=== PATIENT | female | born 1950 | race Caucasian/White ===

== ENCOUNTER → 2018-02-03 09:55 | Outpatient (CLI) | payer MEDICARE, OTHER, SELFPAY ==
--- NOTE | 2018-02-03 09:58 | BD_ITS ---
STUDY: DUAL ENERGY X-RAY ABSORPTIOMETRY / DXA REASON FOR EXAM: Female, 67 years old. The patient is postmenopausal. No loss of height. TECHNIQUE: Bone Mineral Density (BMD) measurements of lumbar spine and bilateral hips were obtained. COMPARISON: Comparison is made with prior study dated April 23, 2011. FINDINGS: Lumbar Spine (L1-L4): g/cm2 (1.188) / T-score (0.2) / Z-score (1.8) Findings are suggestive of normal bone density with a low fracture risk. Left Femur Total: g/cm2 (1.114) / T-score (0.8) / Z-score (2.1) Left Femoral Neck: g/cm2 (1.015) / T-score (-0.2) / Z-score (1.3) Right Femur Total: g/cm2 (1.049) / T-score (0.3) / Z-score (1.6) Right Femoral Neck: g/cm2 (0.945) / T-score (-0.7) / Z-score (0.8) The T-Scores on the most recent prior examination were: Lumbar Spine (L1-L4): There has been improvement of bone density since the previous examination. Left Femur Total: which represents a worsening of 0.9%. Right Femur Total: which represents a worsening of 3.9%. BD/Dexa Bone Density Study IMPRESSION: The patient is considered normal as outlined below according to World Sameer Organization (WHO) criteria with a low fracture risk. There has been worsening of bone density since the previous examination. Reference Information: The T-score is the number of standard deviations above or below the standard which is normal for young adults at their peak bone mineral density. The World Health Organization (WHO) interprets the T-scores as follows: Above -1 Normal bone density Between -1 and -2.5 Osteopenia Equal to / or below -2.5 Osteoporosis As a practical clinical guideline, osteopenia may be graded as follows: Mild -1 through -1.5 Moderate -1.6 through -2.0 Severe -2.1 through -2.4 The Z-score is the number of standard deviations above or below age-matched controls. A Z-score of less than -1.5 would be considered abnormal. References: 1. NIH Osteoporosis and Related Bone Diseases http://www.osteo.org 2. International Society for Clinical Densitometry http://www.iscd.org 3. National Osteoporosis Foundation http://www.nof.org Electronically Signed: Remberto Ferraro MD at 11:20 EDT Tel [phone], Service support ,
--- NOTE | 2018-02-03 09:58 | BI_ITS ---
MAMMOGRAPHY - BILATERAL SCREENING REASON FOR EXAM: Female, 67 years old. Routine annual screening examination. PERTINENT HISTORY: Mother with breast cancer. Grandmother with breast cancer. TECHNIQUE: Digital bilateral breast nelly (3D mammographic acquisition) in the CC and MLO projections. 2-D mediolateral oblique (MLO) and craniocaudad (CC) views of both breasts were obtained. CAD: Full Field Digital Mammography with Computer Added Detection was performed. COMPARISON: Comparison is made with prior study dated May 06, 2017 and June 25, 2015. FINDINGS: Breast Composition: There are scattered areas of fibroglandular density. There are no dominant masses or suspicious calcifications. Stable small bilateral axillary lymph nodes. No other significant abnormalities are identified. There has been no significant change since the prior study. BI/SCREENING MAMM (CAD), BILAT IMPRESSION: Stable bilateral screening mammogram. Yearly follow-up mammogram recommended. (A) ASSESSMENT CATEGORY: BIRADS Category 2: Benign. A letter regarding these results will be sent to the patient by the facility within 30 days. Approximately 10% of breast cancers are not detected by mammography. A normal mammogram should not delay biopsy of a clinically suspicious abnormality. [id number] Electronically Signed: Remberto Ferraro MD at 12:35 EDT Tel [phone], Service support ,
== END ==
PROVIDERS: Family Provider Family Medicine; PCP Family Medicine; Visit Provider Obstetrics & Gynecology Gynecology
DX: Z78.0 Asymptomatic menopausal state (principal); Z12.31 Encounter for screening mammogram for malignant neoplasm of breast; Z13.820 Encounter for screening for osteoporosis
CPT/HCPCS: 77063; 77067; 77080

== ENCOUNTER → 2018-08-10 11:55 | Outpatient (CLI) | payer MEDICARE, OTHER, SELFPAY ==
[2018-08-10 15:58] LABS: Absolute Lymphocyte Count 1.06 X10^3/ul (0.83-4.51); Absolute Neutrophil Count 2.1 X10^3/uL (2.0-7.7); Basophil# 0.04 X10^3/uL; Basophil% 1.1 % (0-1); Eosinophil# 0.15 X10^3/uL; Eosinophils% 4.1 % (0-5); Lymphocyte # 1.06 X10^3/ul (4.0); Mean Corp Hgb Conc 33.3 g/gl (32-36); Mean Corpuscular Hgb 30.2 pg (27.0-32.0); Mean Corpuscular Volume 90.5 fL (81-99); Mean Platelet Vol. 10.9 fl (6.2-12.0); Monocyte# 0.32 X10^3/uL; Monocyte% 8.8 % (0-10); Neutrophil # 2.08 X10^3/uL (2.7-7.7); Platelet Count 230 K/mm3 (150-450); RBC Distribution Width SD 46.1 fl (35.1-43.9); Red Blood Count 4.97 M/mm3 (4.2-5.4); White Blood Count 3.7 K/mm3 (4.4-11.0)
[2018-08-10 16:01] LABS: POSITIVE COUNT NO; POSITIVE DIFFERENTIAL NO; POSITIVE MORPHOLOGY NO
[2018-08-10 16:17] LABS: Vitamin D,25 Hydroxy 16.8 ng/mL (29.95-100.01)
[2018-08-10 16:20] LABS: ALB/GLOB Ratio 1.1 RATIO (0.9-2.4); AST(SGOT) 21 U/L (15-37); Alanine Aminotransfer ALT/SGPT 31 U/L (13-56); Albumin, Serum 3.8 g/dL (3.2-5.0); Alkaline Phosphatase 51 U/L (45-117); Anion Gap 9 (5-15); BUN 14 mg/dL (7-18); BUN/Creat Ratio 17.1 RATIO (10-20); Chloride 111 mmol/L (98-107); Cholesterol 187 mg/dL (200); Creatinine, Serum 0.82 mg/dL (0.55-1.02); EST Glomerular Filtration Rate 74 mL/min (>60); Est Glom Filt Rate - Afr Amer 90 mL/min (>60); Globulin 3.6 g/dL (2.2-4.2); Glucose 87 mg/dL (74-106); High Density Lipoprotein 62 mg/dL; Potassium 4.2 mmol/L (3.5-5.1); Protein, Total 7.4 g/dL (6.4-8.2); Sodium Level 141 mmol/L (136-145); Triglycerides 132 mg/dL; Very Low Density Lipoprotein 26 mg/dL (5-40)
[2018-08-10 16:22] LABS: Microalbumin,Random Urine 12.1 mg/L (NO RANGE EST.); Microalbumin:Creatinine Ratio 8.7 mg/g CRE (<30 mg/g CRE)
[2018-08-10 16:29] LABS: PTHIN 81.3 pg/mL (18.4-80.1)
== END ==
PROVIDERS: Family Provider Family Medicine; PCP Family Medicine; Visit Provider Family Medicine
DX: I10 Essential (primary) hypertension (principal); E21.3 Hyperparathyroidism, unspecified; E78.00 Pure hypercholesterolemia, unspecified
CPT/HCPCS: 36415; 80053; 80061; 82043; 82306; 82570; 83970; 84443; 85025

== ENCOUNTER → 2019-12-20 12:19 | Outpatient (CLI) | payer MEDICARE, OTHER, SELFPAY ==
[2019-12-20 15:53] LABS: Absolute Lymphocyte Count 1.54 X10^3/uL (0.83-4.51); Absolute Neutrophil Count 2.7 X10^3/uL (2.0-7.7); Basophil# 0.04 X10^3/uL; Basophil% 0.8 % (0-1); Eosinophil# 0.17 X10^3/uL; Eosinophils% 3.5 % (0-5); Hematocrit 46.9 % (37-47); Hemoglobin 15.1 g/dL (12.0-15.0); Lymphocyte # 1.54 X10^3/ul (4.0); Lymphocyte % 31.6 % (19-41); Mean Corp Hgb Conc 32.2 g/dL (32-36); Mean Corpuscular Hgb 29.5 pg (27.0-32.0); Mean Corpuscular Volume 91.6 fL (81-99); Mean Platelet Vol. 10.4 fl (6.2-12.0); Monocyte# 0.46 X10^3/uL; Monocyte% 9.4 % (0-10); NRBC Flagged by Analyzer 0 % (0-5); Neutrophil # 2.66 X10^3/uL (2.7-7.7); Neutrophil % 54.5 % (47-70); Platelet Count 242 K/mm3 (150-450); RBC Distribution Width CV 13.2 % (11.6-14.6); RBC Distribution Width SD 44.7 fl (35.1-43.9); Red Blood Count 5.12 M/mm3 (4.2-5.4); White Blood Count 4.9 K/mm3 (4.4-11.0)
[2019-12-20 16:01] LABS: Erythrocyte Sedimentation Rate 16 mm/hr (0-30)
[2019-12-20 16:52] LABS: ALB/GLOB Ratio 1.1 RATIO (0.9-2.4); AST(SGOT) 22 U/L (15-37); Alanine Aminotransfer ALT/SGPT 31 U/L (13-56); Albumin, Serum 3.9 g/dL (3.2-5.0); Alkaline Phosphatase 54 U/L (45-117); Anion Gap 4 (5-15); BUN 14 mg/dL (7-18); BUN/Creat Ratio 15.7 RATIO (10-20); Calcium,Total 9.2 mg/dL (8.5-10.1); Chloride 111 mmol/L (98-107); Cholesterol 213 mg/dL (200); Creatinine, Serum 0.89 mg/dL (0.55-1.02); EST Glomerular Filtration Rate 67 mL/min (>60); Est Glom Filt Rate - Afr Amer 81 mL/min (>60); Globulin 3.6 g/dL (2.2-4.2); Glucose 91 mg/dL (74-106); High Density Lipoprotein 66 mg/dL; Magnesium 2.1 mg/dL (1.6-2.6); Potassium 4.1 mmol/L (3.5-5.1); Protein, Total 7.5 g/dL (6.4-8.2); Sodium Level 141 mmol/L (136-145); Thyroid Stim Hormone (TSH) 2.96 uIU/mL (0.358-3.74); Triglycerides 128 mg/dL; Very Low Density Lipoprotein 26 mg/dL (5-40); Vitamin D,25 Hydroxy 28.5 ng/mL
[2019-12-21 08:44] LABS: PTHIN 102.7 pg/mL (18.4-80.1)
[2019-12-22 23:50] LABS: ANTINUCLEAR ANTIBODIES DIRECT Negative (Negative)
== END ==
PROVIDERS: PCP Family Medicine; Referring Provider Family Medicine; Visit Provider Family Medicine
DX: E78.00 Pure hypercholesterolemia, unspecified (principal); M25.519 Pain in unspecified shoulder; M79.10 Myalgia, unspecified site; E21.3 Hyperparathyroidism, unspecified; E55.9 Vitamin D deficiency, unspecified
CPT/HCPCS: 36415; 80053; 80061; 82306; 83735; 83970; 84443; 85025; 85652; 86038

== ENCOUNTER 2020-04-22 10:30 | Outpatient (RCR) | payer MEDICARE, OTHER, SELFPAY ==
--- NOTE | 2019-12-27 11:19 | HP.PTEVAL ---
Patient's Visit Information AUTUMN Carmona WORKMAN is a 69 year old F referred to Physical Therapy by Mahesh Jaramillo MD with a diagnosis of Bilateral shoulder pain- Malaise. Date of Evaluation: 12/27/19 Physical Therapist: Diann Esqueda DPT - Visit Plan Frequency: 2x /Week Duration: 4 Weeks Plan: Focus on scapular s/s- modaility of US as needed. HEP issued 12/26: postural correction in sitting for long periods of time, scapular retractions, pec corner stretch - Subjective Subjective: Patient reports that she has shoulder pain bilaterally right>left- she has had pain for about a month- insidious onset-she reports traveling pains when she was at her daughters she had achy pains in her legs and now they are in her shoulders. Pain is located in the whole shoulder and pain into the deltoid- the pain comes and goes. Reports the pain is achy. Agg: movement and laying on them, placing her coffee cup into the microwave. Worst: 5/10 Best: 0/10 Eases: returning to a resting position. Right hand dominate. No N/T in the hands. No Neck pain, blurred vision or dizziness. Has had a balance issue a long time but has no recent falls- but has had falls in the past with no serious injuries. No x-rays or MRI's of the shoulders. Is not very active- does not work outside of the home. Family is in [place] so she travels a lot. 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 sleep: disturbed- on her sides PMHx: HTN, endometriosis cancer Meds: Losartin, rosavastartin - Objective Posture: FH, RS, increased kyphosis- can correct but does not maintain. Gait: no deviation- good arm swing and trunk rotation. Palpation: tender along biciptal groove right >left. ROM: Cervical spine: WNL in all planes- no pain, Shoulder: Right: flexion: 90 degrees AROM 180 degrees AAROM, abd: 180 degrees, IR: to belt line, ER: 30 degrees all with pain. Left: WNL in all planes with pain IR, flexion, abduction and extension. Elbow/Wrist: bilateral WNL. Strength: Scap: poor, Shoulder: 4-/5 throughout with pain in all motions, Elbow: 4/5 no pain. Nurse Healthcare Manager: equal and fair bilaterally. Special Test: Impingment Neer: positive, Redmond Aime: positive, Empty Can: positive - Goals Goal 1:: Patient will be I with HEP and progression Goal Time Frame: 4-6 Weeks Goal 2:: Patient will maintain proper posture t/o tx session to demo increased scap s/s Goal Time Frame: 4-6 Weeks Goal 3:: Patient will report 0/10 pain for 1 week Goal Time Frame: 4-6 Weeks Goal 4:: Patinet will demo full AROM of the right shoulder Goal Time Frame: 4-6 Weeks - Rehabilitation Potential Physical Therapy Diagnosis: Patient presents with hypomobility- she has decreased scapular s/s and muscular endurance leading to impingment and increased pain with ADL's. Rehabilitation Potential: Good - Anticipated Interventions Patient/Client Instruction: Educate patient on: Benefits of Fitness Program Therapeutic Exercise to Include: Strength training, Endurance training, Body mechanics, Postural training, Passive ROM, Active ROM, Scapular Strength/Stabilization For the Purpose of:: To improve muscle performance and motor function TENS: Yes Cryotherapy (ice pack, ice massage): Yes Thermo therapy (hot pack): Yes Ultrasound (thermal/non thermal): Yes Thank you for the opportunity to evaluate your patient. For Medicare and Medicare HMO plans, please review the plan of care and approve it. It will need to be FAXED BACK to us at [phone] for Medicare purposes. For Medicare only, by signing this I certify the plan of care. Please let me know if there are questions or concerns regarding this plan of care. Physician Signature: Date:
--- NOTE | 2020-01-30 11:09 | HP.PTREVAL ---
Dr. Mahesh Jaramillo MD, It has been my pleasure to treat AUTUMN Carmona WORKMAN over the last 10 visits for Bilateral shoulder pain- Malaise. Please see the progress note below for an update on the physical therapy plan of care! Subjective: Pt reports she is feeling better overall, but notes she still has pain and limitations with IADL's Objective/Function: B shoulder pain is 2/10 at rest, 5/10 at worst. Pt reports she is more aware of posture at this time, but not all the time. R shoulder ROM: flex= 90, abd= 72, ER= 62. Pt is I with HEP Plan Plan: Cont with POC 2 times per week for 4 more weeks. Cont to focus on aggressive ROM and strengthening of B shoulders Goals Goal 1:: Patient will be I with HEP and progression Goal Time Frame: 4-6 Weeks Goal Progress: Goal Met Goal 2:: Patient will maintain proper posture t/o tx session to demo increased scap s/s Goal Time Frame: 4-6 Weeks Goal 3:: Patient will report 0/10 pain for 1 week Goal Time Frame: 4-6 Weeks Goal Progress: Progressing Goal 4:: Patinet will demo full AROM of the right shoulder Goal Time Frame: 4-6 Weeks Goal Progress: Progressing Anticipated Interventions Patient/Client Instruction: Educate patient on: Benefits of Fitness Program Therapeutic Exercise to Include: Strength training, Endurance training, Body mechanics, Postural training, Passive ROM, Active ROM, Scapular Strength/Stabilization For the Purpose of:: To improve muscle performance and motor function TENS: Yes Cryotherapy (ice pack, ice massage): Yes Thermo therapy (hot pack): Yes Ultrasound (thermal/non thermal): Yes Please do not hesitate to contact me at [phone] by phone or if you have questions or concerns regarding this new plan of care! Sincerely, Moses Rodrigues, PT, ATC
--- NOTE | 2020-02-26 11:12 | HP.PTREVAL_ITS ---
Dr. Mahesh Jaramillo MD, It has been my pleasure to treat AUTUMN Carmona WORKMAN over the last 18 visits for Bilateral shoulder pain- Malaise. Please see the progress note below for an update on the physical therapy plan of care! Subjective: Pt reports she is still sore and having difficulty with sleep at this time. Objective/Function: Pt reports her pain ranges from 2-5/10 and still causes her sleep difficulty. R shoulder ROM: flex= 110, abd= 90, ER= 70, IR WNL. R shoulder MMT: 3+/5 through available ROM. Pt reports she is still limited with all IADL's such as kitchen duties and donning/doffing clothes. Pt is improving but demonstrates the need for continued skilled PT to focus on strengthening, ROM, and pain relief Plan Plan: Cont to focus on aggressive ROM and strengthening of B shoulders Goals Goal 1:: Patient will be I with HEP and progression Goal Time Frame: 4-6 Weeks Goal Progress: Goal Met Goal 2:: Patient will maintain proper posture t/o tx session to demo increased scap s/s Goal Time Frame: 4-6 Weeks Goal Progress: Progressing Goal 3:: Patient will report 0/10 pain for 1 week Goal Time Frame: 4-6 Weeks Goal Progress: Progressing Goal 4:: Patinet will demo full AROM of the right shoulder Goal Time Frame: 4-6 Weeks Goal Progress: Progressing Anticipated Interventions Patient/Client Instruction: Educate patient on: Benefits of Fitness Program Therapeutic Exercise to Include: Strength training, Endurance training, Body mechanics, Postural training, Passive ROM, Active ROM, Scapular Strengt h/Stabilization For the Purpose of:: To improve muscle performance and motor function TENS: Yes Cryotherapy (ice pack, ice massage): Yes Thermo therapy (hot pack): Yes Ultrasound (thermal/non thermal): Yes Please do not hesitate to contact me at [phone] by phone or if you have questions or concerns regarding this new plan of care! Sincerely, Moses Rodrigues, PT, ATC
--- NOTE | 2020-03-26 11:06 | HP.PTREVAL ---
Dr. Mahesh Jaramillo MD, It has been my pleasure to treat AUTUMN Carmona WORKMAN over the last 26 visits for Bilateral shoulder pain- Malaise. Please see the progress note below for an update on the physical therapy plan of care! Subjective: Pt reports she does feel better, but knows she has to continue with ex's at this time. Pain only with certain movements. Objective/Function: R shoulder ROM: flex= 130, abd= 100, ER= 80, IR WNL. B shoulder pain ranges from 0-7/10. Pt is I with HEP. Pt still lacks functional strength and ROM for IADL's at this time. Plan Plan: Transition to machine use with emphasis on I with gym routine here at Goals Goal 1:: Patient will be I with HEP and progression Goal Time Frame: 4-6 Weeks Goal Progress: Goal Met Goal 2:: Patient will maintain proper posture t/o tx session to demo increased scap s/s Goal Time Frame: 4-6 Weeks Goal Progress: Goal Met Goal 3:: Patient will report 0/10 pain for 1 week Goal Time Frame: 4-6 Weeks Goal Progress: Progressing Goal 4:: Patinet will demo full AROM of the right shoulder Goal Time Frame: 4-6 Weeks Goal Progress: Progressing Anticipated Interventions Patient/Client Instruction: Educate patient on: Benefits of Fitness Program Therapeutic Exercise to Include: Strength training, Endurance training, Body mechanics, Postural training, Passive ROM, Active ROM, Scapular Strength/Stabilization For the Purpose of:: To improve muscle performance and motor function TENS: Yes Cryotherapy (ice pack, ice massage): Yes Thermo therapy (hot pack): Yes Ultrasound (thermal/non thermal): Yes Please do not hesitate to contact me at [phone] by phone or if you have questions or concerns regarding this new plan of care! Sincerely, Moses Rodrigues, PT, ATC
--- NOTE | 2020-04-22 11:02 | HP.PTDCSUM ---
It has been my pleasure to treat AUTUMN Carmona WORKMAN referred by Dr. Mahesh Jaramillo MD, with the diagnosis of Bilateral shoulder pain- Malaise for a total of 34 visit(s). Discharge Date: Please see the following information for a summary of their discharge status. Subjective: Mild R shoulder pain this date right shldr Pain Intensity (Out of 10): 2 left shldr Pain Intensity (Out of 10): 0 % Improvement: 80 Objective/Function: R shoulder pain 2/10, L shoulder pain 0/10. R shoulder ROM: flex= 145, abd= 100, ER= 65. L slhoulder ROM: flex= 160, abd= 160, ER= 55. R shoulder MMT: flex and abd= 4-/5, ER= 3+/5, IR 5/5. L shoulder MMT: all motions 4/5 throughout. Pt is I with HEP Goal 1:: Patient will be I with HEP and progression Goal Progress: Goal Met Goal 2:: Patient will maintain proper posture t/o tx session to demo increased scap s/s Goal Progress: Goal Met Goal 3:: Patient will report 0/10 pain for 1 week Goal Progress: Progressing Goal 4:: Patinet will demo full AROM of the right shoulder Goal Progress: Goal Met Plan: Discharge to HEP and gym routine If there are questions or concerns regarding this patient's physical therapy, please feel free to call me at [phone]. Thank you for the referral of this patient. Sincerely, Moses Rodrigues, PT, ATC
== END 2020-04-22 19:00 | disposition home or self-care (01) ==
LOC: PT 10:30
PROVIDERS: PCP Family Medicine; Referring Provider Family Medicine; Visit Provider Family Medicine
DX: M25.512 Pain in left shoulder (principal); M25.511 Pain in right shoulder; M79.10 Myalgia, unspecified site
CPT/HCPCS: 97110; 97161; 97164

== ENCOUNTER → 2020-04-23 11:44 | Outpatient (CLI) | payer MEDICARE, OTHER, SELFPAY ==
[2020-04-23 15:21] LABS: Absolute Lymphocyte Count 1.32 X10^3/uL (0.83-4.51); Absolute Neutrophil Count 3.3 X10^3/uL (2.0-7.7); Basophil# 0.04 X10^3/uL; Basophil% 0.7 % (0-1); Eosinophil# 0.18 X10^3/uL; Eosinophils% 3.4 % (0-5); Hematocrit 45.2 % (37-47); Hemoglobin 14.7 g/dL (12.0-15.0); Lymphocyte # 1.32 X10^3/ul (4.0); Lymphocyte % 24.6 % (19-41); Mean Corp Hgb Conc 32.5 g/dL (32-36); Mean Corpuscular Volume 92.2 fL (81-99); Mean Platelet Vol. 11.3 fl (6.2-12.0); Monocyte% 9.3 % (0-10); NRBC Flagged by Analyzer 0 % (0-5); Neutrophil # 3.31 X10^3/uL (2.7-7.7); Neutrophil % 61.8 % (47-70); Platelet Count 215 K/mm3 (150-450); RBC Distribution Width CV 13.7 % (11.6-14.6); RBC Distribution Width SD 46.3 fl (35.1-43.9); White Blood Count 5.4 K/mm3 (4.4-11.0)
[2020-04-23 15:32] LABS: Vitamin D,25 Hydroxy 42.5 ng/mL
[2020-04-23 15:42] LABS: PTHIN 93.1 pg/mL (18.4-80.1)
[2020-04-23 15:49] LABS: CRP < 2.90 mg/L (0.0-3.0); Thyroid Stim Hormone (TSH) 2.17 uIU/mL (0.358-3.74)
== END ==
PROVIDERS: PCP Family Medicine; Referring Provider Family Medicine; Visit Provider Family Medicine
DX: E34.9 Endocrine disorder, unspecified (principal); M79.10 Myalgia, unspecified site
CPT/HCPCS: 36415; 82306; 83970; 84443; 85025; 86140

== ENCOUNTER → 2020-05-24 | Outpatient (CLI) | payer MEDICARE, OTHER, SELFPAY | END | disposition home or self-care (01) | LOC: LABSPEC 15:02 | PROVIDERS: PCP Family Medicine; Referring Provider Family Medicine; Visit Provider Family Medicine | DX: Z03.818 Encounter for observation for suspected exposure to other biological agents ruled out (principal) | CPT/HCPCS: 87633; 87635; U0003 ==

== ENCOUNTER → 2020-08-20 15:18 | Outpatient (CLI) | payer MEDICARE, OTHER, SELFPAY ==
[2020-06-25 12:39] VITALS: BMI 40.2
--- NOTE | 2020-08-20 15:20 | BI_ITS ---
MAMMOGRAPHY - BILATERAL SCREENING REASON FOR EXAM: Female, 70 years old. Routine annual screening examination. PERTINENT HISTORY: Mother with breast cancer. Grandmother with breast cancer. TECHNIQUE: Digital bilateral breast clarence (3D mammographic acquisition) in the CC and MLO projections. 2-D mediolateral oblique (MLO) and craniocaudad (CC) views of both breasts were obtained. CAD: Full Field Digital Mammography with Computer Added Detection was performed. COMPARISON: Comparison is made with prior study dated 02/03/2018 and 11/14/2016. FINDINGS: Breast Composition: There are scattered areas of fibroglandular density. There are no dominant masses or suspicious calcifications. Stable small benign appearing bilateral axillary lymph nodes. No other significant abnormalities are identified. There has been no significant change since the prior study. BI/SCREEN MAMM (CAD) W/CLARENCE BILAT IMPRESSION: Stable bilateral screening mammogram. Yearly follow-up mammogram recommended. (A) ASSESSMENT CATEGORY: BIRADS Category 2: Benign. A letter regarding these results will be sent to the patient by the facility within 30 days. Approximately 10% of breast cancers are not detected by mammography. A normal mammogram should not delay biopsy of a clinically suspicious abnormality. [id number] Electronically Signed: Remberto Ferraro, at 8:21 EST , Service support ,
== END ==
PROVIDERS: PCP Family Medicine; Referring Provider Family Medicine; Visit Provider Family Medicine
DX: Z12.31 Encounter for screening mammogram for malignant neoplasm of breast (principal)
CPT/HCPCS: 77063; 77067

== ENCOUNTER → 2020-08-29 11:17 | Outpatient (CLI) | payer MEDICARE, OTHER, SELFPAY ==
[2020-06-25 12:39] VITALS: BMI 40.2
[2020-08-29 12:37] LABS: Absolute Lymphocyte Count 0.98 X10^3/uL (0.83-4.51); Absolute Neutrophil Count 2.6 X10^3/uL (2.0-7.7); Basophil# 0.04 X10^3/uL; Basophil% 0.9 % (0-1); Eosinophil# 0.13 X10^3/uL; Hematocrit 45.4 % (37-47); Hemoglobin 14.4 g/dL (12.0-15.0); Lymphocyte # 0.98 X10^3/ul (4.0); Lymphocyte % 22.6 % (19-41); Mean Corp Hgb Conc 31.7 g/dL (32-36); Mean Corpuscular Hgb 29.6 pg (27.0-32.0); Mean Corpuscular Volume 93.2 fL (81-99); Mean Platelet Vol. 10.1 fl (6.2-12.0); Monocyte% 13.9 % (0-10); NRBC Flagged by Analyzer 0 % (0-5); Neutrophil # 2.56 X10^3/uL (2.7-7.7); Neutrophil % 59.1 % (47-70); Platelet Count 259 K/mm3 (150-450); RBC Distribution Width CV 14.5 % (11.6-14.6); RBC Distribution Width SD 49.8 fl (35.1-43.9); Red Blood Count 4.87 M/mm3 (4.2-5.4); White Blood Count 4.3 K/mm3 (4.4-11.0)
[2020-08-29 13:23] LABS: ALB/GLOB Ratio 0.9 RATIO (0.9-2.4); AST(SGOT) 15 U/L (15-37); Alanine Aminotransfer ALT/SGPT 23 U/L (13-56); Albumin, Serum 3.4 g/dL (3.2-5.0); Alkaline Phosphatase 56 U/L (45-117); Anion Gap 5 (5-15); BUN 10 mg/dL (7-18); Calcium,Total 9.4 mg/dL (8.5-10.1); Chloride 113 mmol/L (98-107); Creatinine, Serum 0.83 mg/dL (0.55-1.02); EST Glomerular Filtration Rate 72 mL/min (>60); Est Glom Filt Rate - Afr Amer 88 mL/min (>60); Globulin 3.6 g/dL (2.2-4.2); Glucose 87 mg/dL (74-106); Magnesium 2.2 mg/dL (1.6-2.6); Potassium 3.7 mmol/L (3.5-5.1); Sodium Level 143 mmol/L (136-145); Thyroid Stim Hormone (TSH) 2.36 uIU/mL (0.358-3.74)
== END ==
PROVIDERS: PCP Family Medicine; Referring Provider Family Medicine; Visit Provider Family Medicine
DX: R53.83 Other fatigue (principal); E21.3 Hyperparathyroidism, unspecified
CPT/HCPCS: 36415; 80053; 82306; 83735; 84443; 85025

== ENCOUNTER → 2020-11-26 11:33 | Outpatient (CLI) | payer MEDICARE, OTHER, SELFPAY ==
[2020-06-25 12:39] VITALS: BMI 40.2
[2020-11-26 15:17] LABS: Absolute Lymphocyte Count 1.25 X10^3/uL (0.83-4.51); Absolute Neutrophil Count 2.6 X10^3/uL (2.0-7.7); Basophil# 0.04 X10^3/uL; Basophil% 0.9 % (0-1); Eosinophil# 0.25 X10^3/uL; Eosinophils% 5.5 % (0-5); Hematocrit 47.2 % (37-47); Hemoglobin 15.1 g/dL (12.0-15.0); Lymphocyte # 1.25 X10^3/ul (4.0); Lymphocyte % 27.4 % (19-41); Mean Corpuscular Hgb 29.3 pg (27.0-32.0); Mean Corpuscular Volume 91.5 fL (81-99); Mean Platelet Vol. 10.6 fl (6.2-12.0); Monocyte# 0.46 X10^3/uL; Monocyte% 10.1 % (0-10); NRBC Flagged by Analyzer 0 % (0-5); Neutrophil # 2.55 X10^3/uL (2.7-7.7); Neutrophil % 55.9 % (47-70); Platelet Count 254 K/mm3 (150-450); RBC Distribution Width CV 12.8 % (11.6-14.6); RBC Distribution Width SD 42.8 fl (35.1-43.9); Red Blood Count 5.16 M/mm3 (4.2-5.4); White Blood Count 4.6 K/mm3 (4.4-11.0)
[2020-11-26 15:30] LABS: ALB/GLOB Ratio 1.1 RATIO (0.9-2.4); AST(SGOT) 21 U/L (15-37); Alanine Aminotransfer ALT/SGPT 33 U/L (13-56); Albumin, Serum 3.7 g/dL (3.2-5.0); Alkaline Phosphatase 55 U/L (45-117); Anion Gap 6 (5-15); BUN 12 mg/dL (7-18); BUN/Creat Ratio 14.9 RATIO (10-20); Calcium,Total 9.2 mg/dL (8.5-10.1); Chloride 113 mmol/L (98-107); Creatinine, Serum 0.81 mg/dL (0.55-1.02); EST Glomerular Filtration Rate 75 mL/min (>60); Est Glom Filt Rate - Afr Amer 91 mL/min (>60); Globulin 3.5 g/dL (2.2-4.2); Glucose 86 mg/dL (74-106); Protein, Total 7.2 g/dL (6.4-8.2); Sodium Level 142 mmol/L (136-145)
[2020-11-26 15:32] LABS: Vitamin D,25 Hydroxy 48.8 ng/mL
[2020-11-27 08:35] LABS: PTHIN 90.8 pg/mL (18.4-80.1)
== END ==
PROVIDERS: PCP Family Medicine; Referring Provider Family Medicine; Visit Provider Family Medicine
DX: E21.3 Hyperparathyroidism, unspecified (principal); M25.519 Pain in unspecified shoulder
CPT/HCPCS: 36415; 80053; 82306; 83970; 85025

== ENCOUNTER → 2020-12-31 09:54 | Outpatient (CLI) | payer MEDICARE, OTHER, SELFPAY ==
[2020-06-25 12:39] VITALS: BMI 40.2
[2020-12-31 13:07] LABS: PTHIN 144.4 pg/mL (18.4-80.1)
[2020-12-31 13:08] LABS: Vitamin D,25 Hydroxy 59.2 ng/mL
== END ==
PROVIDERS: PCP Family Medicine; Referring Provider Family Medicine; Visit Provider Family Medicine
DX: E21.3 Hyperparathyroidism, unspecified (principal)
CPT/HCPCS: 36415; 82306; 83970

== ENCOUNTER → 2021-01-02 14:53 | Outpatient (CLI) | payer MEDICARE, OTHER, SELFPAY ==
[2020-06-25 12:39] VITALS: BMI 40.2
--- NOTE | 2021-01-02 14:56 | US_ITS ---
STUDY: THYROID ULTRASOUND REASON FOR EXAM: Female, 70 years old. persistent elevated PTH w/ normal renal function and vitamin D TECHNIQUE: Ultrasound evaluation of the thyroid was performed with real-time and static barber-scale imaging. COMPARISON: None. FINDINGS: RIGHT LOBE: The right lobe of the thyroid gland measures 3.6 x 1.6 x 1.5 cm. There is a homogeneous echotexture. There are no demonstrated solid, cystic or complex lesions. Multiple small (less than 5 mm) colloid cyst. LEFT LOBE: The left lobe of the thyroid gland measures 4.2 x 1.1 x 1.2 cm. There is a homogeneous echotexture. Multiple small (less than 5 mm) colloid cyst. ISTHMUS: The isthmus measures 3 mm thick. . The regional lymph nodes are normal. US/Thyroid IMPRESSION: Normal ultrasound examination of the thyroid. Multiple tiny colloid cyst. Electronically Signed: Ezequiel Constantino MD at 9:50 EDT Tel , Service support ,
== END ==
PROVIDERS: PCP Family Medicine; Referring Provider Family Medicine; Visit Provider Family Medicine
DX: E21.3 Hyperparathyroidism, unspecified (principal)
CPT/HCPCS: 76536

== ENCOUNTER → 2021-05-07 09:42 | Outpatient (CLI) | payer MEDICARE, OTHER, SELFPAY ==
[2020-06-25 12:39] VITALS: BMI 40.2
[2021-05-07 12:41] LABS: Vitamin D,25 Hydroxy 48.2 ng/mL
[2021-05-07 12:48] LABS: PTHIN 80.8 pg/mL (18.4-80.1)
[2021-05-07 12:52] LABS: ALB/GLOB Ratio 1.1 RATIO (0.9-2.4); AST(SGOT) 23 U/L (15-37); Alanine Aminotransfer ALT/SGPT 33 U/L (13-56); Albumin, Serum 3.7 g/dL (3.2-5.0); Alkaline Phosphatase 54 U/L (45-117); Anion Gap 7 (5-15); BUN 12 mg/dL (7-18); BUN/Creat Ratio 14.5 RATIO (10-20); CRP < 2.90 mg/L (0.0-3.0); Calcium,Total 9.2 mg/dL (8.5-10.1); Chloride 110 mmol/L (98-107); Cholesterol 211 mg/dL (200); Creatinine, Serum 0.83 mg/dL (0.55-1.02); EST Glomerular Filtration Rate 73 mL/min (>60); Est Glom Filt Rate - Afr Amer 88 mL/min (>60); Globulin 3.4 g/dL (2.2-4.2); Glucose 93 mg/dL (74-106); High Density Lipoprotein 57 mg/dL; Protein, Total 7.1 g/dL (6.4-8.2); Sodium Level 141 mmol/L (136-145); Triglycerides 172 mg/dL; Very Low Density Lipoprotein 34 mg/dL (5-40)
[2021-05-07 12:53] LABS: Microalbumin,Random Urine 9.8 mg/L (NO RANGE EST.); Microalbumin:Creatinine Ratio 8.6 mg/g CRE (<30 mg/g CRE)
== END ==
PROVIDERS: PCP Family Medicine; Visit Provider Family Medicine
DX: E21.3 Hyperparathyroidism, unspecified (principal); I10 Essential (primary) hypertension; E78.00 Pure hypercholesterolemia, unspecified
CPT/HCPCS: 36415; 80053; 80061; 82043; 82306; 82570; 83970; 84443; 86140

== ENCOUNTER 2021-07-11 13:00 | Outpatient (RCR) | payer MEDICARE, OTHER, SELFPAY ==
[2020-06-25 12:39] VITALS: BMI 40.2
--- NOTE | 2021-05-13 15:28 | HP.PTEVAL_ITS ---
Patient's Visit Information AUTUMN Carmona WORKMAN is a 71 year old F referred to Physical Therapy by Dr. Mahesh Jaramillo MD with a diagnosis of R rotator cuff strain and bicepital calcific tendonitis. Date of Evaluation: 05/13/21 Physical Therapist: Moses Rodrigues, PT, ATC - Visit Plan Frequency: 2-3x /Week Duration: 4-6 Weeks Plan: R rotator cuff strengthening, scap stab ex's, UBE, and HEP - Subjective Pt reports her R shoulder has been sore for greater than one year. Pt reports she has had injections in the past which helped her R shoulder for a little while, but her pain has returned and she is in pain again. Pt reports she has had PT in the past which also helped her to improve, but the pain has always returned. Pt is R hand dominant. Pt reports she has difficulty with ADL's such as using her microwave of putting dishes away secondary to weakness and lack of ROM. Pt reports she has had xrays in the last year which showed calcific tendonitis. Pt reports her goal is to get her R shoulder much improved with ROM and strength so she can perform normal IADL's again without being so limited. No UE tingling or numbness in R UE. Pt reports sleep difficulty secondary to pain. Pt reports her R shoulder pain is 2/10 at rest, 10/10 pain at worst - Pain R Shoulder pain Pain Intensity (Out of 10): 2 Pain Intensity Range: 10 - Objective Neuro: B UE sensation is WNL to light touch. B bicepital reflex= 2/3. ROM: L shoulder flex= 150, abd= 150, ER= 70, IR WNL; R shoulder flex= 80, abd= 65, ER= 65, IR mod limitations. MMT: R shoulder is 3/5 and painful in available ROM. L shoulder is 4/5 and painful as well. Special tests: Pos empty can and HK tests this date - Balance/Special Test Scores Quick DASH Score: 38.6350 - Goals Goal 1:: Decrease R shoulder pain x 50% to aid with sleep Goal Time Frame: 4-6 Weeks Goal 2:: Increase R shoulder flex and abd ROM x 40 degrees to aid with overhead lifting Goal Time Frame: 4-6 Weeks Goal 3:: Increase R shoulder strength x 1 grade to aid with IADL's Goal Time Frame: 4-6 Weeks Goal 4:: I with HEP Goal Time Frame: 4-6 Weeks - Rehabilitation Potential Physical Therapy Diagnosis: Pt has R shoulder pain, weakness, and limited ROM secondary to R rotator cuff strain and bicepital calcific tendonitis Rehabilitation Potential: Good - Anticipated Interventions Patient/Client Instruction: Educate patient on: Condition, Plan of Care For the Purpose of:: To facilitate caregiver knowledge Therapeutic Exercise to Include: Strength training, Endurance training, Active ROM, Scapular Strength/Stabilization For the Purpose of:: To decrease pain, To increase ROM, To improve muscle performance and motor function Cryotherapy (ice pack, ice massage): Yes For the Purpose of:: To decrease pain, To increase ROM, To improve muscle performance and motor function Thank you for the opportunity to evaluate your patient. For Medicare and Medicare HMO plans, please review the plan of care and approve it. It will need to be FAXED BACK to us at [phone] for Medicare purposes. For Medicare only, by signing this I certify the plan of care. Please let me know if there are questions or concerns regarding this plan of care. Physician Signature: Date:
--- NOTE | 2021-06-13 13:37 | HP.PTREVAL ---
Dr. Mahesh Jaramillo MD, It has been my pleasure to treat AUTUMN Carmona WORKMAN over the last 14 visits for R rotator cuff strain and bicepital calcific tendonitis. Please see the progress note below for an update on the physical therapy plan of care! Subjective: Pt reports her pain is better and she feels looser. Objective/Function: R shoulder pain ranges from 3-8/10. Pt is still limited with all overhead activity. R shoulder ROM: flex= 90, abd= 90. R shoulder MMT: R shoulder is 3+/5 with exception to IR= 5/5 Plan Plan: Cont with PT to focus on ROM. Pt is I with HEP Balance/Gait/Functional tests - Balance/Special Test Scores Quick DASH Score: 50.0000 Goals Goal 1:: Decrease R shoulder pain x 50% to aid with sleep Goal Time Frame: 4-6 Weeks Goal Progress: Progressing Goal 2:: Increase R shoulder flex and abd ROM x 40 degrees to aid with overhead lifting Goal Time Frame: 4-6 Weeks Goal Progress: Progressing Goal 3:: Increase R shoulder strength x 1 grade to aid with IADL's Goal Time Frame: 4-6 Weeks Goal Progress: Progressing Goal 4:: I with HEP Goal Time Frame: 4-6 Weeks Goal Progress: Progressing Anticipated Interventions Patient/Client Instruction: Educate patient on: Condition, Plan of Care For the Purpose of:: To facilitate caregiver knowledge Therapeutic Exercise to Include: Strength training, Endurance training, Active ROM, Scapular Strength/Stabilization For the Purpose of:: To decrease pain, To increase ROM, To improve muscle performance and motor function Cryotherapy (ice pack, ice massage): Yes For the Purpose of:: To decrease pain, To increase ROM, To improve muscle performance and motor function Please do not hesitate to contact me at [phone] by phone or if you have questions or concerns regarding this new plan of care! Sincerely, Moses Rodrigues, PT, ATC
--- NOTE | 2021-07-11 13:36 | HP.PTDCSUM ---
It has been my pleasure to treat AUTUMN Carmona WORKMAN referred by Dr. Mahesh Jaramillo MD, with the diagnosis of R rotator cuff strain and bicepital calcific tendonitis for a total of 24 visit(s). Discharge Date: Please see the following information for a summary of their discharge status. Subjective: Pt reports she is ready to be discharged R Shoulder pain Pain Intensity (Out of 10): 0 % Improvement: 70 Objective/Function: R shoulder pain is 0/10 at rest, but still increases to 8/10 at worst. R shoulder ROM: flex= 130, abd= 100, ER= 75. R shoulder MMT: IR is 5/5. All other measurements are 4-/5 in available ROM. I with HEP Goal 1:: Decrease R shoulder pain x 50% to aid with sleep Goal Progress: Goal Met Goal 2:: Increase R shoulder flex and abd ROM x 40 degrees to aid with overhead lifting Goal Progress: Goal Met Goal 3:: Increase R shoulder strength x 1 grade to aid with IADL's Goal Progress: Goal Met Goal 4:: I with HEP Goal Progress: Goal Met Plan: Discharge to [facility] If there are questions or concerns regarding this patient's physical therapy, please feel free to call me at [phone]. Thank you for the referral of this patient. Sincerely, Moses Rodrigues, PT, ATC Balance/Gait/Functional tests - Balance/Special Test Scores Quick DASH Score: 38.6350
== END 2021-07-11 19:00 | disposition home or self-care (01) ==
LOC: PT 13:00
PROVIDERS: PCP Family Medicine; Referring Provider Family Medicine; Visit Provider Family Medicine
DX: M77.9 Enthesopathy, unspecified (principal)
CPT/HCPCS: 97110; 97161; 97164

== ENCOUNTER 2022-01-01 11:52 | Outpatient (CLI) | payer MEDICARE, OTHER, SELFPAY ==
--- NOTE | 2022-01-01 11:54 | BI_ITS ---
MAMMOGRAPHY - BILATERAL SCREENING 3-D TOMOSYNTHESIS REASON FOR EXAM: Female, 71 years old. screening PERTINENT HISTORY: No significant family history. TECHNIQUE: 2-D mammograms and 3-D Tomosynthesis of the breast (s) were performed. CAD was performed. COMPARISON: 08/20/2020 FINDINGS: The breast composition is composed of scattered fibroglandular density. Scattered benign calcifications are seen. No dense spiculated masses or suspicious microcalcifications are identified. No architectural distortion is identified. There is no skin thickening or retraction. There has been no significant change since the prior study. BI/SCREENING MAMM (CAD), BILAT IMPRESSION: No mammographic signs of malignancy. Routine yearly mammograms recommended. ASSESSMENT CATEGORY: BIRADS Category 1: Negative. A letter regarding these results will be sent to the patient by the facility within 30 days. FOLLOW UP RECOMMENDATION: Yearly follow up mammogram recommended. (A) Approximately 10% of breast cancers are not detected by mammography. A normal mammogram should not delay biopsy of a clinically suspicious abnormality. Electronically Signed: Ezequiel Constantino MD at 13:20 EDT ,
== END 2022-01-01 23:59 | disposition home or self-care (01) ==
LOC: OPBI 11:52
PROVIDERS: PCP Family Medicine; Visit Provider Family Medicine
DX: Z12.31 Encounter for screening mammogram for malignant neoplasm of breast (principal)
CPT/HCPCS: 77067

== ENCOUNTER 2022-01-16 08:43 | Outpatient (CLI) | payer MEDICARE, OTHER, SELFPAY ==
[2022-01-16 10:30] LABS: AST(SGOT) 17 U/L (15-37); Alanine Aminotransfer ALT/SGPT 22 U/L (13-56); Albumin, Serum 3.5 g/dL (3.2-5.0); Alkaline Phosphatase 54 U/L (45-117); Anion Gap 8 (5-15); BUN 12 mg/dL (7-18); BUN/Creat Ratio 13.5 RATIO (10-20); Calcium,Total 9.3 mg/dL (8.5-10.1); Chloride 113 mmol/L (98-107); Cholesterol 191 mg/dL (200); Creatinine, Serum 0.89 mg/dL (0.55-1.02); EST Glomerular Filtration Rate 67 mL/min (>60); Est Glom Filt Rate - Afr Amer 81 mL/min (>60); Globulin 3.6 g/dL (2.2-4.2); Glucose 102 mg/dL (74-106); High Density Lipoprotein 66 mg/dL; Potassium 3.6 mmol/L (3.5-5.1); Protein, Total 7.1 g/dL (6.4-8.2); Sodium Level 141 mmol/L (136-145); Triglycerides 99 mg/dL; Very Low Density Lipoprotein 20 mg/dL (5-40)
== END 2022-01-16 23:59 | disposition home or self-care (01) ==
LOC: MFPLAB 08:45
PROVIDERS: PCP Family Medicine; Referring Provider Family Medicine; Visit Provider Registered Nurse
DX: I10 Essential (primary) hypertension (principal)
CPT/HCPCS: 36415; 80053; 80061